=== PATIENT | female | born 1985 | race Asian ===

== ENCOUNTER 2017-02-08 15:39 | Emergency (ER) | payer BC ==
[~2017-02-08] VITALS: Ht 160 cm; Wt 57.0 kg
[2017-02-08] MEDS ORDERED: ACETAMINOPHEN 160MG/5ML UDC PO ONE (18:45)
[2017-02-08] MEDS ORDERED: ACETAMINOPHEN 650MG/20.3ML UDC PO SCH (20:00)
[2017-02-08 20:58] VITALS: BP 138/82
== END 2017-02-08 21:05 | disposition home or self-care (01) ==
LOC: ER 15:39
DX: F07.81 Postconcussional syndrome (principal); F12.10 Cannabis abuse, uncomplicated; V89.2XXA Person injured in unspecified motor-vehicle accident, traffic, initial encounter; Y93.89 Activity, other specified; Y92.89 Other specified places as the place of occurrence of the external cause
CPT/HCPCS: 70450; 81025; 99284

== ENCOUNTER 2019-02-22 06:27 | Day surgery (SDC) | payer BC ==
[~2019-02-22] VITALS: Ht 160 cm; Wt 57.2 kg
[~2019-02-22 06:27] MED LIST: MULT1TAB44 PO
[2019-02-22 07:05] LABS: BASOPHILS % 1.2 % (0.0-2.0); HEMATOCRIT. 41.3 % (36.0-48.0); HEMOGLOBIN. 14.1 g/dL (12.0-16.0); LYMPHOCYTES % 33.1 % (20.0-50.0); MEAN CORPUSCULAR HEMOGLOBIN 31.6 pg (28.0-32.0); MEAN CORPUSCULAR VOLUME 92.5 fL (81.0-99.0); MEAN PLATELET VOLUME 7.3 fl (7.4-10.4); MONOCYTES % 6.9 % (2.0-8.0); NEUTROPHILS % 57.8 % (40.0-76.0); PLATELET 211 x1000/uL (130-400); RED BLOOD CELL COUNT 4.47 mill/uL (4.2-5.4); RED CELL DISTRIBUTION WIDTH 12.6 % (11.6-14.6)
[2019-02-22 07:10] LABS: CHLORIDE 107 mEq/L (98-107)
[2019-02-22 07:11] LABS: UCG SCREEN NEGATIVE
[2019-02-22 07:13] LABS: INR 1.2; PARTIAL THROMBOPLASTIN TIME 30.6 sec (23.4-31.0); PROTHROMBIN TIME 12.6 sec (9.6-11.0)
[2019-02-22] MEDS ORDERED: METHYLENE BLUE 50 MG/10 ML AMP IV ONE (07:24)
[2019-02-22] MEDS ORDERED: VASOPRESSIN 20 UNIT/ML 1ML ONE (07:24)
[2019-02-22] MEDS ORDERED: LACTATED RINGERS 1,000 ML IV SCH (07:30)
[2019-02-22 07:38] LABS: CLARITY URINE CLOUDY (CLEAR); COLOR URINE YELLOW (YELLOW); KETONES URINE NEGATIVE (NEGATIVE); LEUKOCYTE ESTERASE URINE 3+ (NEGATIVE); NITRITE URINE NEGATIVE (NEGATIVE); OCCULT BLOOD URINE NEGATIVE (NEGATIVE); PH URINE 5.5 (4.5-8.0); PROTEIN URINE NEGATIVE (NEGATIVE); UROBILINOGEN URINE 0.2 E.U./dL (0.2-1.0)
[2019-02-22] MEDS ORDERED: MIDAZOLAM HCL 2 MG/2 ML VIAL ONE (08:36)
[2019-02-22] MEDS ORDERED: PROPOFOL 200MG/20ML VIAL IV ONE (08:39)
[2019-02-22] MEDS ORDERED: FENTANYL CITRATE/PF 50MCG/ML 2ML VIAL ONE (08:40)
[2019-02-22] MEDS ORDERED: CEFAZOLIN SODIUM 1000MG/VIAL ONE (08:40)
[2019-02-22] MEDS ORDERED: SODIUM CHLORIDE 0.9% 10ML VIAL ONE (08:40)
[2019-02-22] MEDS ORDERED: LIDOCAINE HCL/PF 1% 10 MG/ML 5ML VIAL ONE (08:40)
[2019-02-22] MEDS ORDERED: BUPIVACAINE/EPINEPH/PF 0.25%/0.0005 10ML ONE (08:42)
[2019-02-22] MEDS ORDERED: ROCURONIUM BROMIDE 10MG/ML VIAL 5ML IV ONE (08:42)
[2019-02-22] MEDS ORDERED: KETOROLAC 30MG/ML VIAL ONE (08:54)
[2019-02-22] MEDS ORDERED: ONDANSETRON HCL 4MG/2ML INJ ONE (08:54)
[2019-02-22] MEDS ORDERED: DEXAMETHASONE 4MG/ML 1ML VIAL ONE (08:54)
[2019-02-22] MEDS ORDERED: METOCLOPRAMIDE HCL 10MG/2ML VIAL ONE (08:54)
[2019-02-22] MEDS ORDERED: HYDROMORPHONE HCL/PF 2MG/ML (OR) ONE (09:24)
[2019-02-22] MEDS ORDERED: NEOSTIGMINE METHYLSULFATE 1MG/ML 10 ML VIAL ONE (09:24)
[2019-02-22] MEDS ORDERED: GLYCOPYRROLATE 0.2 MG/ML 2ML VIAL ONE (09:24)
[2019-02-22] MEDS ORDERED: HYDRALAZINE 20MG/ML VIAL IV PRN (11:00)
[2019-02-22] MEDS ORDERED: HYDROMORPHONE HCL/PF 2MG/ML CPJ IV PRN (11:00)
[2019-02-22] MEDS ORDERED: ONDANSETRON HCL 4MG/2ML INJ IV PRN (11:00)
== END 2019-02-22 13:10 | disposition home or self-care (01) ==
LOC: OR 06:27
PROVIDERS: ATTEND Obstetrics & Gynecology Obstetrics
DX: N84.0 Polyp of corpus uteri (principal); N92.0 Excessive and frequent menstruation with regular cycle; G89.29 Other chronic pain; N83.202 Unspecified ovarian cyst, left side; I10 Essential (primary) hypertension; E11.9 Type 2 diabetes mellitus without complications; N80.3 Endometriosis of pelvic peritoneum; M30.3 Mucocutaneous lymph node syndrome [Kawasaki]; Z79.899 Other long term (current) drug therapy; Z88.8 Allergy status to other drugs, medicaments and biological substances; Z98.890 Other specified postprocedural states; Z83.3 Family history of diabetes mellitus; Z82.49 Family history of ischemic heart disease and other diseases of the circulatory system; Z80.8 Family history of malignant neoplasm of other organs or systems
CPT/HCPCS: 36415; 80048; 81003; 81025; 88305; J0171; J0690; J1100; J1170; J1885; J2250; J2405; J2704; J2710; J2765; J3010; J3490; Q9968

== ENCOUNTER → 2019-04-14 | Outpatient (CLI) | payer BC | END | disposition home or self-care (01) | LOC: US 07:38 | PROVIDERS: ATTEND Obstetrics & Gynecology Obstetrics | DX: N63.23 Unspecified lump in the left breast, lower outer quadrant (principal) | CPT/HCPCS: 76642 ==

== ENCOUNTER → 2019-05-02 | Outpatient (CLI) | payer BC ==
[2019-05-02 09:18] LABS: T4 FREE 1.66 ng/dL (0.76-1.46)
[2019-05-03 04:08] LABS: VITAMIN D 25-OH 28.6 ng/mL (30.0-100.0)
[2019-05-03 07:02] LABS: HBSAG SCREEN Negative (Negative); RUBEOLA AB IGG > 300.00 AU/mL (Immune >16.4)
[2019-05-04 09:10] LABS: HIV SCREEN 4G Non Reactive (Non Reactive)
== END | disposition home or self-care (01) ==
LOC: LAB 07:40
PROVIDERS: ATTEND Obstetrics & Gynecology Obstetrics
DX: O23.10 Infections of bladder in pregnancy, unspecified trimester (principal); Z3A.00 Weeks of gestation of pregnancy not specified
CPT/HCPCS: 36415; 82306; 82947; 83021; 83036; 84439; 84443; 85660; 86592; 86765; 86803; 86850; 86900; 87340; 87389

== ENCOUNTER → 2019-05-17 | Outpatient (CLI) | payer BC | END | disposition home or self-care (01) | LOC: LAB 15:21 | PROVIDERS: ATTEND Obstetrics & Gynecology Obstetrics | DX: O99.280 Endocrine, nutritional and metabolic diseases complicating pregnancy, unspecified trimester (principal); Z3A.00 Weeks of gestation of pregnancy not specified | CPT/HCPCS: 36415; 84481; 86376 ==

== ENCOUNTER → 2019-08-22 | Outpatient (CLI) | payer BC | END | disposition home or self-care (01) | LOC: US 07:31 | PROVIDERS: ATTEND Obstetrics & Gynecology Obstetrics | DX: N63.23 Unspecified lump in the left breast, lower outer quadrant (principal) | CPT/HCPCS: 36415; 76642; 82950 ==

== ENCOUNTER 2019-12-05 04:18 | Inpatient (IN) | payer BC ==
[~2019-12-05] VITALS: Ht 160 cm; Wt 67.6 kg
[2019-12-05] MEDS ORDERED: LACTATED RINGERS 1,000 ML IV SCH (05:33)
[2019-12-05] MEDS ORDERED: NALOXONE HCL 0.4 MG/ML 1ML VIAL IM PRN (05:45)
[2019-12-05] MEDS ORDERED: LIDOCAINE HCL 1% 20ML VIAL (Pyxis) INJ INFIL SCH (05:45)
[2019-12-05] MEDS ORDERED: METHYLERGONOVINE MALEATE 0.2 MG/ML IM PRN ×2 (05:45→10:45)
[2019-12-05] MEDS ORDERED: PENICILLIN G POTASSIUM 5 MMU in DEXT 5% WATER 100 ML IV SCH (06:00)
[2019-12-05 06:45] LABS: BASOPHILS % 0.3 % (0.0-2.0); EOSINOPHILS % 0.1 % (0.0-5.0); HEMATOCRIT. 34.6 % (36.0-48.0); HEMOGLOBIN. 12.2 g/dL (12.0-16.0); INR 0.9; LYMPHOCYTES % 7.1 % (20.0-50.0); MEAN CORPUSCULAR HEMOGLOBIN 30.9 pg (28.0-32.0); MEAN CORPUSCULAR VOLUME 87.5 fL (81.0-99.0); MEAN PLATELET VOLUME 8.1 fl (7.4-10.4); MONOCYTES % 4.8 % (2.0-8.0); NEUTROPHILS % 87.7 % (40.0-76.0); PARTIAL THROMBOPLASTIN TIME 26.9 sec (23.4-31.0); PLATELET 154 x1000/uL (130-400); RED BLOOD CELL COUNT 3.96 mill/uL (4.2-5.4); RED CELL DISTRIBUTION WIDTH 12.4 % (11.6-14.6)
[2019-12-05] MEDS: BUTORPHANOL TARTRATE 2 MG/ML VIAL IV PRN ×2 (06:53→08:51)
[2019-12-05 07:01] LABS: CLARITY URINE CLEAR (CLEAR); COLOR URINE YELLOW (YELLOW); KETONES URINE 1+ (NEGATIVE); LEUKOCYTE ESTERASE URINE 2+ (NEGATIVE); NITRITE URINE NEGATIVE (NEGATIVE); OCCULT BLOOD URINE NEGATIVE (NEGATIVE); PROTEIN URINE 1+ (NEGATIVE); SPECIFIC GRAVITY URINE 1.019 (1.005-1.030); UROBILINOGEN URINE 0.2 E.U./dL (0.2-1.0)
[2019-12-05 07:09] VITALS: BP 99/70
[2019-12-05 07:12] LABS: HEPATITIS B SURFACE ANTIGEN NEGATIVE
[2019-12-05 07:16] LABS: *AMPHETAMINES SCREEN URINE NEGATIVE (NEGATIVE); *BARBITURATES SCREEN URINE NEGATIVE (NEGATIVE); *BENZODIAZEPINES SCREEN URINE NEGATIVE (NEGATIVE); *COCAINE SCREEN URINE NEGATIVE (NEGATIVE); METHADONE URINE SCREEN NEGATIVE (NEGATIVE); OPIATES URINE SCREEN NEGATIVE (NEGATIVE)
[2019-12-05 07:17] LABS: CANNABINOID URINE SCREEN NEGATIVE (NEGATIVE); PHENCYCLIDINE URINE SCREEN NEGATIVE (NEGATIVE)
[2019-12-05] MEDS ORDERED: PENICILLIN G POTASSIUM 2.5 MMU in DEXTROSE 5% WATER 50 ML IV SCH (10:00)
[2019-12-05] MEDS ORDERED: MINERAL OIL 30ML BOTTLE PO NR (10:15)
[2019-12-05] MEDS ORDERED: MINERAL OIL 30ML BOTTLE PO ONE (10:15)
[2019-12-05] MEDS: DEXT 5%/LR + PITOCIN 20UNITS/L 1,000 ML IV SCH ×2 (10:21→11:57)
[2019-12-05] MEDS ORDERED: GLYCERIN/WITCH HAZEL LEAF MEDICATED PAD TOP PRN (10:30)
[2019-12-05] MEDS ORDERED: BENZOCAINE/LANOLIN/ALOE VERA SPRAY TOP PRN (10:30)
[2019-12-05] MEDS ORDERED: LANOLIN OINT 7GM TUBE TOP PRN (10:30)
[2019-12-05] MEDS ORDERED: RHO(D) IMMUNE GLOBULIN 300 MCG/SYR IM PRN (10:30)
[2019-12-05] MEDS ORDERED: IBUPROFEN 800MG TABLET PO PRN (10:30)
[2019-12-05] MEDS ORDERED: ACETAMINOPHEN 500MG TABLET PO PRN (10:30)
[2019-12-05 13:30] VITALS: BP 100/64
[2019-12-05 14:00] VITALS: BP 98/59
[2019-12-05 16:20] VITALS: BP 97/63
[2019-12-05] MEDS: SIMETHICONE 80MG TABLET CHEW PO SCH ×2 (18:00→20:37)
[2019-12-05] MEDS: DOCUSATE SODIUM 100MG CAPSULE PO SCH (20:36)
[2019-12-05 22:00] VITALS: BP 102/69
[2019-12-06 05:20] LABS: BASOPHILS % 0.2 % (0.0-2.0); HEMATOCRIT. 30.3 % (36.0-48.0); HEMOGLOBIN. 10.6 g/dL (12.0-16.0); LYMPHOCYTES % 7.4 % (20.0-50.0); MEAN CORPUSCULAR HEMOGLOBIN 31.5 pg (28.0-32.0); MEAN CORPUSCULAR VOLUME 89.7 fL (81.0-99.0); MEAN PLATELET VOLUME 8.1 fl (7.4-10.4); MONOCYTES % 5.8 % (2.0-8.0); NEUTROPHILS % 86.6 % (40.0-76.0); PLATELET 138 x1000/uL (130-400); RED BLOOD CELL COUNT 3.38 mill/uL (4.2-5.4); RED CELL DISTRIBUTION WIDTH 12.5 % (11.6-14.6)
[2019-12-06 05:30] VITALS: BP 90/54
[2019-12-06 08:00] VITALS: BP 108/76
[2019-12-06] MEDS: PRENATAL VIT/FE FUMARATE/FA TABLET PO SCH (08:25)
[2019-12-06] MEDS: SIMETHICONE 80MG TABLET CHEW PO SCH ×4 (08:25→20:26)
[2019-12-06 16:15] VITALS: BP 107/69
[2019-12-06] MEDS: DOCUSATE SODIUM 100MG CAPSULE PO SCH (20:25)
[2019-12-06 22:00] VITALS: BP 108/74
[2019-12-07 05:25] VITALS: BP 105/71
[2019-12-07 07:32] VITALS: BP 106/61
[2019-12-07] MEDS: SIMETHICONE 80MG TABLET CHEW PO SCH (08:28)
[2019-12-07] MEDS: PRENATAL VIT/FE FUMARATE/FA TABLET PO SCH (08:28)
[2019-12-07] MEDS ORDERED: TETANUS, DIPHTHERIA, PERTUSSIS VAC/PF 0.5ML (>7YR OLD) IM ONE (10:00)
== END 2019-12-07 11:30 | disposition home or self-care (01) | DRG 807 ==
LOC: OBSVTOIN 04:18 → 8 EST LDRP 04:18 → 8EST 12:33
PROVIDERS: ADMIT Obstetrics & Gynecology Obstetrics; ATTEND Obstetrics & Gynecology Obstetrics
PROC: 10E0XZZ Delivery of Products of Conception, External Approach (ICD-10-PCS; principal; 2019-12-05)
PROC: 0KQM0ZZ Repair Perineum Muscle, Open Approach (ICD-10-PCS; 2019-12-05)
DX: O99.824 Streptococcus B carrier state complicating childbirth (principal); Z37.0 Single live birth; O70.1 Second degree perineal laceration during delivery; Z3A.39 39 weeks gestation of pregnancy
CPT/HCPCS: 36415; 80305; 81003; 85025; 86592; 86703; 86762; 86850; 86900; 87340; 90715; 99281; J0595; J2310; J2540; J2590; J3490; J7060; J7120

== ENCOUNTER → 2020-06-25 | Outpatient (CLI) | payer BC ==
[2020-06-25 08:00] LABS: BASOPHILS % 1.3 % (0.0-2.0); EOSINOPHILS % 0.9 % (0.0-5.0); HEMATOCRIT. 41.9 % (36.0-48.0); HEMOGLOBIN. 14.3 g/dL (12.0-16.0); LYMPHOCYTES % 32.2 % (20.0-50.0); MEAN CORPUSCULAR HEMOGLOBIN 30.4 pg (28.0-32.0); MEAN CORPUSCULAR VOLUME 88.7 fL (81.0-99.0); MEAN PLATELET VOLUME 6.8 fl (7.4-10.4); MONOCYTES % 6.4 % (2.0-8.0); NEUTROPHILS % 59.2 % (40.0-76.0); PLATELET 208 x1000/uL (130-400); RED BLOOD CELL COUNT 4.72 mill/uL (4.2-5.4); RED CELL DISTRIBUTION WIDTH 12.3 % (11.6-14.6)
[2020-06-25 08:12] LABS: CHLORIDE 109 mEq/L (98-107)
[2020-06-25 08:19] LABS: LDL CHOLESTEROL 82 mg/dL (5-100)
[2020-06-25 08:20] LABS: HDL CHOLESTEROL 81 mg/dL (40-59); T4 FREE 0.93 ng/dL (0.76-1.46)
[2020-06-25 08:38] LABS: CLARITY URINE CLEAR (CLEAR); COLOR URINE YELLOW (YELLOW); KETONES URINE NEGATIVE (NEGATIVE); LEUKOCYTE ESTERASE URINE 1+ (NEGATIVE); NITRITE URINE NEGATIVE (NEGATIVE); OCCULT BLOOD URINE NEGATIVE (NEGATIVE); PROTEIN URINE NEGATIVE (NEGATIVE); SPECIFIC GRAVITY URINE 1.021 (1.005-1.030); UROBILINOGEN URINE 0.2 E.U./dL (0.2-1.0)
== END | disposition home or self-care (01) ==
LOC: LAB 07:23
PROVIDERS: ATTEND Internal Medicine
DX: Z00.00 Encounter for general adult medical examination without abnormal findings (principal); R94.6 Abnormal results of thyroid function studies; E55.9 Vitamin D deficiency, unspecified
CPT/HCPCS: 36415; 80053; 80061; 81003; 82306; 83036; 84439; 84443; 85025

== ENCOUNTER → 2021-03-04 | Outpatient (CLI) | payer BC ==
[2021-03-04 08:50] LABS: CHLORIDE 107 mEq/L (98-107)
[2021-03-04 09:11] LABS: BASOPHILS % 0.8 % (0.0-2.0); EOSINOPHILS % 0.1 % (0.0-5.0); HEMATOCRIT. 37.6 % (36.0-48.0); HEMOGLOBIN. 12.9 g/dL (12.0-16.0); LYMPHOCYTES % 19.7 % (20.0-50.0); MEAN CORPUSCULAR HEMOGLOBIN 30.8 pg (28.0-32.0); MEAN CORPUSCULAR VOLUME 89.9 fL (81.0-99.0); MEAN PLATELET VOLUME 7.3 fl (7.4-10.4); MONOCYTES % 5.5 % (2.0-8.0); NEUTROPHILS % 73.9 % (40.0-76.0); PLATELET 212 x1000/uL (130-400); RED BLOOD CELL COUNT 4.18 mill/uL (4.2-5.4); RED CELL DISTRIBUTION WIDTH 12.1 % (11.6-14.6)
[2021-03-04 09:13] LABS: B-HCG QUANTITATIVE 43923 mIU/mL (<3)
[2021-03-05 09:10] LABS: ANTI-NUCLEAR ANTIBODIES DIRECT Negative (Negative); PROGESTERONE 23.9 ng/mL (.); VITAMIN D 25-OH 29.1 ng/mL (30.0-100.0)
== END | disposition home or self-care (01) ==
LOC: LAB 07:34
PROVIDERS: ATTEND Obstetrics & Gynecology Obstetrics
DX: Z13.29 Encounter for screening for other suspected endocrine disorder (principal); N91.2 Amenorrhea, unspecified
CPT/HCPCS: 36415; 80053; 82306; 84144; 84443; 84702; 85025; 86038

== ENCOUNTER → 2021-03-06 | Outpatient (CLI) | payer BC | END | disposition home or self-care (01) | LOC: LAB 07:30 | PROVIDERS: ATTEND Obstetrics & Gynecology Obstetrics | DX: Z13.29 Encounter for screening for other suspected endocrine disorder (principal); N91.2 Amenorrhea, unspecified | CPT/HCPCS: 36415; 84702 ==

== ENCOUNTER → 2021-03-10 | Outpatient (CLI) | payer BC | END | disposition home or self-care (01) | LOC: LAB 07:44 | PROVIDERS: ATTEND Obstetrics & Gynecology Obstetrics | DX: Z13.29 Encounter for screening for other suspected endocrine disorder (principal); N91.2 Amenorrhea, unspecified | CPT/HCPCS: 36415; 84702 ==

== ENCOUNTER → 2021-03-13 | Outpatient (CLI) | payer BC | END | disposition home or self-care (01) | LOC: US 10:12 | PROVIDERS: ATTEND Obstetrics & Gynecology Obstetrics | DX: Z34.81 Encounter for supervision of other normal pregnancy, first trimester (principal); N83.201 Unspecified ovarian cyst, right side; Z3A.01 Less than 8 weeks gestation of pregnancy | CPT/HCPCS: 76801 ==

== ENCOUNTER → 2021-04-08 | Outpatient (CLI) | payer BC ==
[2021-04-08 14:39] LABS: BASOPHILS % 0.5 % (0.0-2.0); EOSINOPHILS % 0.3 % (0.0-5.0); HEMOGLOBIN. 12.7 g/dL (12.0-16.0); MEAN CORPUSCULAR HEMOGLOBIN 30.6 pg (28.0-32.0); MEAN CORPUSCULAR VOLUME 89.2 fL (81.0-99.0); MEAN PLATELET VOLUME 7.2 fl (7.4-10.4); MONOCYTES % 4.7 % (2.0-8.0); NEUTROPHILS % 79.5 % (40.0-76.0); PLATELET 220 x1000/uL (130-400); RED BLOOD CELL COUNT 4.15 mill/uL (4.2-5.4); RED CELL DISTRIBUTION WIDTH 12.6 % (11.6-14.6)
[2021-04-08 14:53] LABS: T4 FREE 1.78 ng/dL (0.76-1.46)
[2021-04-08 15:24] LABS: HEPATITIS B SURFACE AB 565.8 mIU/mL
[2021-04-08 15:30] LABS: HEPATITIS B SURFACE ANTIGEN NEGATIVE
[2021-04-11 09:06] LABS: HIV 1 ANTIBODIES Negative (Negative); HIV 2 ANTIBODIES Negative (Negative)
[2021-04-14 08:08] LABS: HGB A2 2.8 % (1.8-3.2); HGB F 1.1 % (0.0-2.0)
[2021-04-15 17:11] LABS: 25-HYDROXY VITAMIN D3 32 ng/mL (.)
== END | disposition home or self-care (01) ==
LOC: LAB 13:55
PROVIDERS: ATTEND Internal Medicine
DX: Z34.00 Encounter for supervision of normal first pregnancy, unspecified trimester (principal); E55.9 Vitamin D deficiency, unspecified; Z3A.00 Weeks of gestation of pregnancy not specified
CPT/HCPCS: 36415; 82306; 82947; 83021; 83036; 84439; 84443; 85025; 85660; 86592; 86701; 86702; 86706; 86762; 86803; 86850; 86900; 87340

== ENCOUNTER → 2021-06-27 | Outpatient (CLI) | payer BC | END | disposition home or self-care (01) | LOC: LAB 07:07 | PROVIDERS: ATTEND Obstetrics & Gynecology Obstetrics | DX: Z13.1 Encounter for screening for diabetes mellitus (principal) | CPT/HCPCS: 36415; 82947; 82950 ==

== ENCOUNTER → 2021-07-29 | Outpatient (CLI) | payer BC | END | disposition home or self-care (01) | LOC: LAB 07:04 | PROVIDERS: ATTEND Obstetrics & Gynecology Obstetrics | DX: O99.810 Abnormal glucose complicating pregnancy (principal); Z3A.00 Weeks of gestation of pregnancy not specified | CPT/HCPCS: 36415; 82951 ==

== ENCOUNTER 2021-07-31 12:27 | Observation (INO) | payer BC ==
[~2021-07-31] VITALS: Ht 160 cm; Wt 62.6 kg
[2021-07-31 13:20] LABS: CLARITY URINE CLOUDY (CLEAR); COLOR URINE YELLOW (YELLOW); KETONES URINE 2+ (NEGATIVE); LEUKOCYTE ESTERASE URINE 3+ (NEGATIVE); NITRITE URINE NEGATIVE (NEGATIVE); OCCULT BLOOD URINE NEGATIVE (NEGATIVE); PROTEIN URINE TRACE (NEGATIVE); SPECIFIC GRAVITY URINE 1.019 (1.005-1.030); UROBILINOGEN URINE 0.2 E.U./dL (0.2-1.0)
[2021-07-31] MEDS ORDERED: DEXT 5%/LACTATED RINGERS 1,000 ML IV NR (14:15)
[2021-07-31] MEDS ORDERED: CEFAZOLIN 2,000 MG in DEXT 5% WATER 100 ML IV NR (14:15)
== END 2021-07-31 16:20 | disposition home or self-care (01) ==
LOC: 8 EST LDRP 12:27
PROVIDERS: ADMIT Obstetrics & Gynecology Obstetrics; ATTEND Obstetrics & Gynecology Obstetrics
DX: O26.892 Other specified pregnancy related conditions, second trimester (principal); R10.30 Lower abdominal pain, unspecified; Z79.899 Other long term (current) drug therapy; Z3A.27 27 weeks gestation of pregnancy
CPT/HCPCS: 81003; 87086; 96360; 96361; 96365; 99281; G0378; J0690; J7060; 59025

== ENCOUNTER 2021-10-16 13:32 | Inpatient (IN) | payer BC ==
[~2021-10-16] VITALS: Ht 160 cm; Wt 68.0 kg
[2021-10-16] MEDS ORDERED: METHYLERGONOVINE MALEATE 0.2 MG/ML IM PRN (14:15)
[2021-10-16] MEDS ORDERED: LIDOCAINE HCL 1% 20ML VIAL (Pyxis) INJ INFIL SCH (14:15)
[2021-10-16] MEDS ORDERED: NALOXONE HCL 0.4 MG/ML 1ML VIAL IM PRN (14:15)
[2021-10-16] MEDS ORDERED: DEXT 5%/LR + PITOCIN 20UNITS/L 1,000 ML IV SCH ×2 (14:15→16:15)
[2021-10-16] MEDS ORDERED: LACTATED RINGERS 1,000 ML IV SCH (14:15)
[2021-10-16] MEDS ORDERED: BUTORPHANOL TARTRATE 2 MG/ML VIAL IV PRN (14:45)
[2021-10-16] MEDS ORDERED: MINERAL OIL 30ML BOTTLE PO NR (15:15)
[2021-10-16 15:23] LABS: CLARITY URINE CLEAR (CLEAR); COLOR URINE YELLOW (YELLOW); KETONES URINE NEGATIVE (NEGATIVE); LEUKOCYTE ESTERASE URINE 3+ (NEGATIVE); NITRITE URINE NEGATIVE (NEGATIVE); OCCULT BLOOD URINE 2+ (NEGATIVE); PROTEIN URINE NEGATIVE (NEGATIVE); SPECIFIC GRAVITY URINE 1.007 (1.005-1.030); UROBILINOGEN URINE 0.2 E.U./dL (0.2-1.0)
[2021-10-16 15:28] LABS: BASOPHILS % 0.5 % (0.0-2.0); HEMATOCRIT. 40.1 % (36.0-48.0); HEMOGLOBIN. 13.9 g/dL (12.0-16.0); LYMPHOCYTES % 11.2 % (20.0-50.0); MEAN CORPUSCULAR HEMOGLOBIN 31.2 pg (28.0-32.0); MEAN CORPUSCULAR VOLUME 90.2 fL (81.0-99.0); MONOCYTES % 6.7 % (2.0-8.0); NEUTROPHILS % 81.6 % (40.0-76.0); PLATELET 196 x1000/uL (130-400); RED BLOOD CELL COUNT 4.45 mill/uL (4.2-5.4); RED CELL DISTRIBUTION WIDTH 12.8 % (11.6-14.6)
[2021-10-16] MEDS ORDERED: PENICILLIN G POTASSIUM 5 MMU in DEXT 5% WATER 100 ML IV NR (15:30)
[2021-10-16 15:41] LABS: INR 0.9; PARTIAL THROMBOPLASTIN TIME 26.8 sec (23.4-31.0)
[2021-10-16 15:54] LABS: *AMPHETAMINES SCREEN URINE NEGATIVE (NEGATIVE); *BARBITURATES SCREEN URINE NEGATIVE (NEGATIVE); *BENZODIAZEPINES SCREEN URINE NEGATIVE (NEGATIVE); *COCAINE SCREEN URINE NEGATIVE (NEGATIVE); CANNABINOID URINE SCREEN NEGATIVE (NEGATIVE); METHADONE URINE SCREEN NEGATIVE (NEGATIVE); OPIATES URINE SCREEN NEGATIVE (NEGATIVE); PHENCYCLIDINE URINE SCREEN NEGATIVE (NEGATIVE)
[2021-10-16 16:05] LABS: HEPATITIS B SURFACE ANTIGEN NEGATIVE
[2021-10-16] MEDS ORDERED: IBUPROFEN 400MG TABLET PO PRN (16:15)
[2021-10-16] MEDS ORDERED: GLYCERIN/WITCH HAZEL LEAF MEDICATED PAD TOP PRN (16:15)
[2021-10-16] MEDS ORDERED: BENZOCAINE/LANOLIN/ALOE VERA SPRAY TOP PRN ×2 (16:15→17:30)
[2021-10-16] MEDS ORDERED: LANOLIN OINT 7GM TUBE TOP PRN (16:15)
[2021-10-16 18:51] VITALS: BP 118/82
[2021-10-16] MEDS ORDERED: PENICILLIN G POTASSIUM 2.5 MMU in DEXTROSE 5% WATER 50 ML IV SCH (19:30)
[2021-10-16 20:00] VITALS: BP 114/73
[2021-10-16] MEDS: DOCUSATE SODIUM 100MG CAPSULE PO SCH (21:00)
[2021-10-16] MEDS: IBUPROFEN 100MG/5ML UDC PO PRN (23:27)
[2021-10-17 04:30] VITALS: BP 82/56
[2021-10-17 06:30] LABS: BASOPHILS % 0.4 % (0.0-2.0); HEMATOCRIT. 36.2 % (36.0-48.0); HEMOGLOBIN. 12.4 g/dL (12.0-16.0); LYMPHOCYTES % 8.3 % (20.0-50.0); MEAN CORPUSCULAR HEMOGLOBIN 31.3 pg (28.0-32.0); MEAN CORPUSCULAR VOLUME 91.5 fL (81.0-99.0); MEAN PLATELET VOLUME 8.1 fl (7.4-10.4); MONOCYTES % 5.8 % (2.0-8.0); NEUTROPHILS % 85.5 % (40.0-76.0); PLATELET 169 x1000/uL (130-400); RED BLOOD CELL COUNT 3.96 mill/uL (4.2-5.4); RED CELL DISTRIBUTION WIDTH 12.9 % (11.6-14.6)
[2021-10-17 08:00] VITALS: BP 115/79
[2021-10-17] MEDS: IBUPROFEN 100MG/5ML UDC PO PRN ×2 (08:47→21:05)
[2021-10-17] MEDS ORDERED: PRENATAL VIT/FE FUMARATE/FA TABLET PO SCH (09:00)
[2021-10-17 16:00] VITALS: BP 117/77
[2021-10-17 20:00] VITALS: BP 103/70
[2021-10-17] MEDS: DOCUSATE SODIUM 100MG CAPSULE PO SCH (21:00)
[2021-10-18 04:00] VITALS: BP 102/70
[2021-10-18 08:19] VITALS: BP 114/77
== END 2021-10-18 10:30 | disposition home or self-care (01) | DRG 807 ==
LOC: OBSVTOIN 13:32 → 8 EST LDRP 13:32 → 8EST 18:05
PROVIDERS: ADMIT Obstetrics & Gynecology Obstetrics; ATTEND Obstetrics & Gynecology Obstetrics
PROC: 10E0XZZ Delivery of Products of Conception, External Approach (ICD-10-PCS; principal; 2021-10-16)
PROC: 0HQ9XZZ Repair Perineum Skin, External Approach (ICD-10-PCS; 2021-10-16)
DX: O70.0 First degree perineal laceration during delivery (principal); Z37.0 Single live birth; Z20.822 Contact with and (suspected) exposure to COVID-19; Z3A.38 38 weeks gestation of pregnancy
CPT/HCPCS: 36415; 80305; 81003; 85025; 86592; 86703; 86762; 86850; 86900; 87340; 87426; 99281; G0378; J0595; J2540; J2590; J3490; J7060

== ENCOUNTER → 2022-01-05 | Outpatient (CLI) | payer BC | END | disposition home or self-care (01) | LOC: LAB 12:48 | PROVIDERS: ATTEND Obstetrics & Gynecology Obstetrics | DX: Z32.00 Encounter for pregnancy test, result unknown (principal) | CPT/HCPCS: 36415; 84702 ==

== ENCOUNTER → 2022-05-08 | Outpatient (CLI) | payer BC ==
[2022-05-08 13:13] LABS: BASOPHILS % 1.2 % (0.0-2.0); EOSINOPHILS % 0.8 % (0.0-5.0); HEMATOCRIT. 42.1 % (36.0-48.0); HEMOGLOBIN. 14.1 g/dL (12.0-16.0); LYMPHOCYTES % 29.9 % (20.0-50.0); MEAN CORPUSCULAR HEMOGLOBIN 29.6 pg (28.0-32.0); MEAN CORPUSCULAR VOLUME 88.7 fL (81.0-99.0); MEAN PLATELET VOLUME 6.7 fl (7.4-10.4); NEUTROPHILS % 62.1 % (40.0-76.0); PLATELET 226 x1000/uL (130-400); RED BLOOD CELL COUNT 4.75 mill/uL (4.2-5.4); RED CELL DISTRIBUTION WIDTH 12.6 % (11.6-14.6)
[2022-05-08 13:34] LABS: CHLORIDE 104 mEq/L (98-107)
[2022-05-08 13:51] LABS: T4 FREE 0.99 ng/dL (0.76-1.46)
== END | disposition home or self-care (01) ==
LOC: LAB 12:14
PROVIDERS: ATTEND Internal Medicine
DX: R94.6 Abnormal results of thyroid function studies (principal); E55.9 Vitamin D deficiency, unspecified; D72.819 Decreased white blood cell count, unspecified
CPT/HCPCS: 36415; 80053; 82306; 84439; 84443; 85025

== ENCOUNTER → 2023-01-08 | Outpatient (CLI) | payer BC ==
[2023-01-08 11:20] LABS: BASOPHILS % 1.1 % (0.0-2.0); EOSINOPHILS % 0.7 % (0.0-5.0); HEMATOCRIT. 38.4 % (36.0-48.0); HEMOGLOBIN. 13.1 g/dL (12.0-16.0); LYMPHOCYTES % 27.4 % (20.0-50.0); MEAN CORPUSCULAR HEMOGLOBIN 30.9 pg (28.0-32.0); MEAN CORPUSCULAR HGB CONC 34.3 g/dL (31.0-37.0); MEAN CORPUSCULAR VOLUME 90.3 fL (81.0-99.0); MEAN PLATELET VOLUME 7.2 fl (7.4-10.4); MONOCYTES % 7.4 % (2.0-8.0); NEUTROPHILS % 63.4 % (40.0-76.0); PLATELET 202 x1000/uL (130-400); RED BLOOD CELL COUNT 4.25 mill/uL (4.2-5.4); RED CELL DISTRIBUTION WIDTH 12.6 % (11.6-14.6); WHITE BLOOD COUNT 4.1 x1000/uL (4.5-11.0)
[2023-01-08 13:09] LABS: CHLORIDE 104 mEq/L (98-107); INDEX HEMOLYSI 1 (1-3); INDEX ICTERIC 1 (1-4); INDEX LIPEMIC 1 (1-3); POTASSIUM 4.1 mEq/L (3.5-5.1); SODIUM 136 mEq/L (136-145)
[2023-01-08 13:25] LABS: ALANINE AMINOTRANSFERASE 21 IU/L (13-61); ALBUMIN 3.7 g/dL (3.4-5.0); CALCIUM 8.1 mg/dL (8.5-10.1); CARBON DIOXIDE 28 mEq/L (21-32); CHOLESTEROL 113 mg/dL (<200); CREATININE 0.9 mg/dL (0.6-1.3); GLUCOSE 90 mg/dL (70-105); HDL CHOLESTEROL 68 mg/dL (40-59); LDL CHOLESTEROL 42 mg/dL (5-100); PROTEIN TOTAL 6.9 g/dL (6.0-8.3); THYROID STIMULATING HORMONE 0.68 uIU/mL (0.36-3.74); TRIGLYCERIDE 71 mg/dL (0-150)
[2023-01-08 14:57] LABS: UREA NITROGEN BLOOD 15 mg/dL (7-21)
[2023-01-08 14:58] LABS: ASPARTATE AMINOTRANSFERASE 13 IU/L (15-37); BILIRUBIN TOTAL 0.7 mg/dL (0.1-1.0)
== END | disposition home or self-care (01) ==
LOC: LAB 10:54
PROVIDERS: ATTEND Obstetrics & Gynecology Obstetrics
DX: Z13.220 Encounter for screening for lipoid disorders (principal); Z13.228 Encounter for screening for other metabolic disorders; Z13.29 Encounter for screening for other suspected endocrine disorder; Z13.0 Encounter for screening for diseases of the blood and blood-forming organs and certain disorders involving the immune mechanism; Z13.1 Encounter for screening for diabetes mellitus
CPT/HCPCS: 36415; 80053; 80061; 83036; 84443; 85025